=== PATIENT | male | born 1985 | race Two or more races ===

== ENCOUNTER 2019-03-10 14:38 | Emergency (ER) | payer OTHER ==
[~2019-03-10] VITALS: Ht 190.5 cm; Wt 127.0 kg
[~2019-03-10 14:38] MED LIST: DOLOGESIC 500-1 EACH PO; KETO10TA2 PO; ORPH100T PO
[2019-03-10] MEDS ORDERED: KETO10TA2 PO (15:39)
== END 2019-03-10 15:44 | disposition home or self-care (01) ==
LOC: ER 14:38
DX: S93.401A Sprain of unspecified ligament of right ankle, initial encounter (principal); X50.0XXA Overexertion from strenuous movement or load, initial encounter; Y93.89 Activity, other specified; Y92.89 Other specified places as the place of occurrence of the external cause; Y99.8 Other external cause status